=== PATIENT | female | born 1985 | race African-American/Black ===

== ENCOUNTER 2020-10-30 09:34 | Emergency (ER) | payer SELFPAY ==
[~2020-10-30] VITALS: Ht 152.4 cm; Wt 100.0 kg
[2020-10-30 10:58] LABS: BILIRUBIN,URINE NEGATIVE (NEG); CLARITY,URINE CLEAR; COLOR,URINE YELLOW; NITRITE,URINE NEGATIVE (NEG); PROTEIN,URINE NEGATIVE (NEG-TRACE)
--- NOTE | 2020-10-30 11:07 | PHYS DOC ---
Past Medical History Past Surgical History: No Surgical History Smoking Status: Never Smoker Alcohol Use: None General Adult EDM: Chief Complaint: PELVIC PAIN Problems: (1) Pelvic pain HPI: HPI: 34-year-old female with a history of bacterial vaginosis presents the emergency department complaining of vaginal discharge, pelvic pain, lower abdominal pain for the past several days that has been intermittent, mild in severity, nonradiating. She states that she has not had any vaginal bleeding, denies chance of , she has had symptoms like this before and was diagnosed with bacterial vaginosis and believes this is likely similar. The patient denies nausea, vomiting, fever, chills, chest pain, shortness of breath, urinary symptoms, cough, recent trauma, or any other complaints. Review of Systems: Review of Systems: Review of systems is otherwise unremarkable except for what was mentioned in the HPI. Heart Score: C/O Chest Pain: No Family History: Family History: Negative Current Medications: My Orders - DON WEEKS DO Procedure Category Date Status Time Ua, Cult If Indicated LAB 10/30/20 In Process 10:10 Urine Test RUDY 10/30/20 In Process 10:10 Chlam/Gc Pcr Ur LAB 10/30/20 Logged 11:02 Wet Prep MANAV 10/30/20 Uncollected 11:02 Pulse Oximetry: RUDY 10/30/20 In Process Standing Order 11:02 Pelvis Complete US 10/30/20 Logged 11:02 Acetaminophen PHA 10/30/20 Logged (Tylenol) 11:15 Allergies: Allergies: Allergies Coded Allergies Type Severity Reaction Last Updated Verified aspirin Allergy Intermediate 10/30/20 Yes Physical Exam: PE: Constitutional: No acute distress, non-toxic appearance. HENT: Atraumatic, bilateral external ears normal, nose normal. Eyes: PERRLA, EOMI, conjunctiva normal, no discharge. Neck: Normal range of motion, supple, no stridor. Cardiovascular: Heart rate regular rhythm. 2+ radial pulses Lungs & Thorax: No respiratory distress, symmetrical expansion. Abdomen: Soft, prepubic tenderness, no rebound or guarding Skin: Warm, dry. Extremities: No tenderness, no cyanosis, ROM intact, no edema. Neurologic: Alert and oriented X 3, normal motor function, normal sensory function, no focal deficits noted. Non ataxic gait. GCS 15. Psychologic: Affect normal, judgment normal, mood normal. Current Patient Data: Labs: Laboratory Tests Test 10/30/20 10:45 10/30/20 10:50 Urine Collection Type Unknown Urine Color Yellow Urine Clarity Clear Urine pH 6.0 (<5.0-8.0) Urine Specific [place] 1.015 (1.000-1.030) Urine Protein Negative mg/dL (NEG-TRACE) Urine Glucose (UA) Negative mg/dL (NEG) Urine Ketones (Stick) Negative mg/dL (NEG) Urine Blood Trace (NEG) Urine Nitrite Negative (NEG) Urine Bilirubin Negative (NEG) Urine Urobilinogen Dipstick 1.0 mg/dL (0.2 mg/dL) Urine Leukocyte Esterase Moderate (NEG) Urine RBC 0 /HPF (0-2) Urine WBC 5-10 /HPF (0-4) Urine Squamous Epithelial Cells Many /LPF Urine Bacteria Few /HPF (0-FEW) Urine Mucus Slight /LPF Bedside Urine HCG, Qualitative Hcg negative (Negative) Vital Signs: Vital Signs Date Time Temp Pulse Resp B/P (MAP) Pulse Ox O2 Delivery O2 Flow Rate FiO2 10/30/20 10:56 98.6 80 18 126/82 99 Room Air 98.6 Radiology/Procedures: Radiology/Procedures: EXAM: Pelvic sonogram. HISTORY: Pain and vaginal discharge. TECHNIQUE: Transabdominal sonographic imaging of the pelvis was performed. COMPARISON: None. FINDINGS: The uterus measures 11.0 x 7.7 x 5.0 cm. There is a right superior uterine fibroid measuring 2.5 x 2.5 x 2.4 cm. The endometrial stripe measures 5 mm in thickness. The ovaries are normal in size and demonstrate normal blood flow. There is no pelvic free fluid. IMPRESSION: 1. Prominent uterus containing a 2.5 cm uterine fibroid. 2. Otherwise, unremarkable pelvic sonogram. Electronically signed by: Gabriela Edwards MD (10/30/2020 12:07 PM) Course & Med Decision Making: Course & Med Decision Making Pelvic exam was offered but the patient deferred for self swab. Work-up is consistent with a noncomplicated bacterial vaginosis. Ultrasound was negative. She was discharged with Flagyl. wanted tx for sti My Orders - DON WEEKS DO Procedure Category Date Status Time Ua, Cult If Indicated LAB 10/30/20 Complete 10:10 Urine Test RUDY 10/30/20 In Process 10:10 Wet Prep MANAV 10/30/20 Complete 11:02 Pulse Oximetry: RUDY 10/30/20 In Process Standing Order 11:02 Pelvis Complete US 10/30/20 Resulted 11:02 Acetaminophen PHA 10/30/20 Complete (Tylenol) 11:15 Chlam/Gc Pcr Ur LAB 10/30/20 In Process 11:10 Urine Culture MANAV 10/30/20 In Process 11:15 Ceftriaxone Im PHA 10/30/20 In Process (Rocephin Im) 13:15 Departure Departure Impression: Primary Impression: Bacterial vaginosis Disposition: HOME / SELF CARE / HOMELESS Condition: STABLE Referrals: NO PCP (PCP) Patient Instructions: Bacterial Vaginosis, [id number] Additional Instructions: You have been given a prescription for Flagyl. This medicine is an antibiotic for bacterial vaginosis. Please take as prescribed for the full course of the prescription. Do not stop taking the medicine early if you feel better, as this could risk building antibiotic resistance and may put you at risk for a more harmful infection later. The most common side effect of antibiotics include nausea, vomiting, diarrhea and rash. Please come to be evaluated if you develop any symptoms that are concerning to you. One major adverse effect of antibiotics is the development of a diarrheal illness called c. diff colitis, if you develop an excessive amount of diarrhea or are concerned about this please return to the ER or consult a physician. You were seen in the emergency department for a sexually transmitted infection (STI). You were tested for the most common STIs including gonorrhea and chlamydia. It is not clear when/where you became infected and many people can be asymptomatic. -You were treated with antibiotics in the emergency department prophylactically for common STIs above. -Avoid drinking alcohol for at least 5 days as the medicine you received can make you sick. -Cultures were taken and you should receive a call if your cultures are positive. It is important you provide the hospital with a good phone number for this follow up. -You need to have testing for syphilis, hepatitis, and other STD/STI testing done at the health department or your primary care doctor's office. -You must have all your sexual partners tested and avoid sexual intercourse for 1 week after all parties have finished testing and treatment. Strict adherence may still not prevent re-infection. - Return to the Emergency Department, day or night, should your symptoms worsen or should you develop a fever, rash, abdominal pain, or for any other concerns you feel warrant further evaluation. Scripts Doxycycline Hyclate (DOXYCYCLINE HYCLATE) 100 Mg Capsule 1 CAP PO BID, #14 CAP Prov: DON WEEKS DO 10/30/20 Metronidazole (FLAGYL) 500 Mg Tablet 1 TAB PO BID, #14 TAB Prov: DON WEEKS DO 10/30/20 DON WEEKS DO Oct 30, 2020 11:07
[2020-10-30 11:15] LABS: BACTERIA,URINE FEW /HPF (0-FEW); RBC,URINE 0 /HPF (0-2)
[2020-10-30] MEDS ORDERED: ACETAMINOPHEN 500 MG TABLET PO ONE (11:15)
--- NOTE | 2020-10-30 12:10 | RAD ---
EXAM: Pelvic sonogram. HISTORY: Pain and vaginal discharge. TECHNIQUE: Transabdominal sonographic imaging of the pelvis was performed. COMPARISON: None. FINDINGS: The uterus measures 11.0 x 7.7 x 5.0 cm. There is a right superior uterine fibroid measurin g 2.5 x 2.5 x 2.4 cm. The endometrial stripe measures 5 mm in thickness. The ovaries are normal in si ze and demonstrate normal blood flow. There is no pelvic free fluid. IMPRESSION: 1. Prominent uterus containing a 2.5 cm uterine fibroid. 2. Otherwise, unremarkable pelvic sonogram. Electronically signed by: Gabriela Edwards MD (10/30/2020 12:07 PM) [id number]
[2020-10-30] MEDS ORDERED: METR500T PO (13:09)
[2020-10-30] MEDS ORDERED: DOXY100C3 PO (13:09)
[2020-10-30] MEDS ORDERED: cefTRIAXone IM 500 MG VIAL. IM ONE (13:15)
[2020-10-30 14:06] VITALS: BP 137/84
== END 2020-10-30 14:06 | disposition home or self-care (01) ==
LOC: ER 09:34
DX: N76.0 Acute vaginitis (principal); B96.89 Other specified bacterial agents as the cause of diseases classified elsewhere
CPT/HCPCS: 76856; 81001; 81025; 87086; 87491; 87591; 96372; 99284; J0696; Q0111

== ENCOUNTER 2020-12-31 04:35 | Emergency (ER) | payer SELFPAY ==
[~2020-12-31] VITALS: Ht 152.4 cm; Wt 105.9 kg
[~2020-12-31 04:35] MED LIST: DOXY100C3 PO; METR500T PO
[2020-12-31] MEDS ORDERED: ONDANSETRON PF 4 MG/2 ML VIAL. IVP ONE (04:45)
[2020-12-31] MEDS ORDERED: IV NORMAL SALINE 1000ML BAG 1,000 ML IV SCH (04:45)
[2020-12-31 05:25] LABS: BASO % 0 % (0-3); EOS % 0 % (0-3); HEMATOCRIT 42.7 % (36.0-47.0); HEMOGLOBIN 14.8 g/dL (12.0-15.5); LYMPH # 1.5 x10^3/uL (1.0-4.8); LYMPH % 11 % (24-48); MEAN CORPUSCULAR HEMOGLOBIN 31 pg (25-35); MEAN CORPUSCULAR HGB CONC 35 g/dL (31-37); MEAN CORPUSCULAR VOLUME 89 fL (79-100); MONO # 0.5 x10^3/uL (0.0-1.1); MONO % 4 % (0-9); NEUT # 11.3 x10^3/uL (1.8-7.7); NEUT % 85 % (31-73); PLATELET COUNT 271 x10^3/uL (140-400); RED BLOOD COUNT 4.78 x10^6/uL (3.50-5.40); RED CELL DISTRIBUTION WIDTH 13.2 % (11.5-14.5); WHITE BLOOD COUNT 13.3 x10^3/uL (4.0-11.0)
--- NOTE | 2020-12-31 05:27 | PHYS DOC ---
Past Medical History Past Medical History: Pancreatitis Additional Past Medical Histor: HIATAL HERNIA (VU HARTMAN DO) Past Surgical History: Tubal ligation (VU HARTMAN DO) Smoking Status: Current Some Day Smoker Additional Information: CIGARS Alcohol Use: Occasionally Social History Narrative: LAST USED THURSDAY (VU HARTMAN DO) General Adult EDM: Chief Complaint: NAUSEA/VOMITING/abdominal pain HPI: HPI: Patient is a 35 year old female who was brought here by EMS from home for evaluation of abdominal pain with nausea and vomiting. Symptoms have been going on for 2 days. Patient says she is not able to keep anything down. Patient had some diarrhea initially but since she could not eat or drink anything she stopped having any bowel movement. Patient described the pain as cramping in nature at the epigastric area. Patient says she vomited so much that her chest hurt now. Patient has history of pancreatitis, she stated that she had some kind of operation of her pancreas in the past but not sure what it was. Patient said every year she would have one episode of intense pain like today. Patient denies history of diabetic high blood pressure. Patient denies any cough or fever. Patient denies any trouble breathing. Patient does have a history of hiatal hernia. (VU HARTMAN DO) Review of Systems: Review of Systems: Constitutional: Denies fever or chills. [] Eyes: Denies change in visual acuity. [] HENT: Denies nasal congestion or sore throat. [] Respiratory: Denies cough or shortness of breath. [] Cardiovascular: Positive for chest pain , no edema. [] GI: Positive for abdominal pain, nausea, vomiting, no bloody stools or diarrhea. [] : Denies dysuria. [] Musculoskeletal: Denies back pain or joint pain. [] Integument: Denies rash. [] Neurologic: Denies headache, focal weakness or sensory changes. [] Endocrine: Denies polyuria or polydipsia. [] Lymphatic: Denies swollen glands. [] Psychiatric: Denies depression or anxiety. [] (VU HARTMAN DO) Heart Score: C/O Chest Pain: Yes HEART Score for Chest Pain: HEART Score for Chest Pain Response (Comments) Value History Slighlty/Non-Suspicious 0 ECG Normal 0 Age < 45 0 Risk Factors No Risk Factors 0 Troponin < Normal Limit 0 Total 0 Risk Factors: Risk Factors: DM, Current or recent (<one month) smoker, HTN, HLP, family history of CAD, obesity. Risk Scores: Score 0 - 3: 2.5% MACE over next 6 weeks - Discharge Home Score 4 - 6: 20.3% MACE over next 6 weeks - Admit for Clinical Observation Score 7 - 10: 72.7% MACE over next 6 weeks - Early Invasive Strategies (VU HARTMAN DO) C/O Chest Pain: N/A (CORTNEY SCOTT MD) Current Medications: Current Medications Medications (Trade) Dose Ordered Sig/Rob Start Time Stop Time Status Last Admin Dose Admin Morphine Sulfate (Morphine Sulfate) 4 mg 1X ONCE 12/31/20 05:30 12/31/20 05:31 UNV Ondansetron HCl (Zofran) 4 mg 1X ONCE 12/31/20 04:45 12/31/20 04:48 DC 12/31/20 05:12 4 MG Pantoprazole Sodium (PROTONIX VIAL for IV PUSH) 40 mg 1X ONCE 12/31/20 05:30 12/31/20 05:31 UNV Sodium Chloride 1,000 ml @ 1,000 mls/hr Q1H 12/31/20 04:45 12/31/20 05:44 12/31/20 05:10 1,000 MLS/HR (VU HARTMAN DO) Allergies: Allergies: Allergies Coded Allergies Type Severity Reaction Last Updated Verified aspirin Allergy Intermediate 10/30/20 Yes (VU HARTMAN DO) Physical Exam: PE: Constitutional: Well developed, well nourished, no acute distress, non-toxic appearance. [] HENT: Normocephalic, atraumatic, bilateral external ears normal, oropharynx moist, no oral exudates, nose normal. [] Eyes: PERRLA, EOMI, conjunctiva normal, no discharge. [] Neck: Normal range of motion, no tenderness, supple, no stridor. [] Cardiovascular:Heart rate regular rhythm, no murmur [] Lungs & Thorax: Bilateral breath sounds clear to auscultation [] Abdomen: Bowel sounds normal, soft, there is tenderness at epigastric area, no masses, no pulsatile masses. [] Skin: Warm, dry, no erythema, no rash. [] Back: No tenderness, no CVA tenderness. [] Extremities: No tenderness, no cyanosis, no clubbing, ROM intact, no edema. [] Neurologic: Alert and oriented X 3, normal motor function, normal sensory function, no focal deficits noted. [] Psychologic: Affect normal, judgement normal, mood normal. [] (VU HARTMAN DO) Current Patient Data: Labs: Laboratory Tests Test 12/31/20 05:15 White Blood Count 13.3 x10^3/uL Red Blood Count 4.78 x10^6/uL Hemoglobin 14.8 g/dL Hematocrit 42.7 % Mean Corpuscular Volume 89 fL Mean Corpuscular Hemoglobin 31 pg Mean Corpuscular Hemoglobin Concent 35 g/dL Red Cell Distribution Width 13.2 % Platelet Count 271 x10^3/uL Neutrophils (%) (Auto) 85 % Lymphocytes (%) (Auto) 11 % Monocytes (%) (Auto) 4 % Eosinophils (%) (Auto) 0 % Basophils (%) (Auto) 0 % Neutrophils # (Auto) 11.3 x10^3/uL Lymphocytes # (Auto) 1.5 x10^3/uL Monocytes # (Auto) 0.5 x10^3/uL Eosinophils # (Auto) 0.0 x10^3/uL Basophils # (Auto) 0.0 x10^3/uL Sodium Level 141 mmol/L Potassium Level 3.3 mmol/L Chloride Level 102 mmol/L Carbon Dioxide Level 28 mmol/L Anion Gap 11 Blood Urea Nitrogen 14 mg/dL Creatinine 1.0 mg/dL Estimated GFR (Cockcroft-Gault) 75.9 BUN/Creatinine Ratio 14 Glucose Level 146 mg/dL Calcium Level 9.5 mg/dL Magnesium Level 1.6 mg/dL Total Bilirubin 0.5 mg/dL Aspartate Amino Transf (AST/SGOT) 15 U/L Alanine Aminotransferase (ALT/SGPT) 31 U/L Alkaline Phosphatase 91 U/L Troponin I Quantitative < 0.017 ng/mL Total Protein 8.5 g/dL Albumin 4.0 g/dL Albumin/Globulin Ratio 0.9 Lipase 28 U/L Current Medications Medications (Trade) Dose Ordered Sig/Rob Route PRN Reason Start Time Stop Time Status Last Admin Dose Admin Sodium Chloride 1,000 ml @ 1,000 mls/hr Q1H IV 12/31/20 04:45 12/31/20 05:44 DC 12/31/20 05:10 Ondansetron HCl (Zofran) 4 mg 1X ONCE IVP 12/31/20 04:45 12/31/20 04:48 DC 12/31/20 05:12 Morphine Sulfate (Morphine Sulfate) 4 mg 1X ONCE IVP 12/31/20 05:30 12/31/20 05:31 DC 12/31/20 05:42 Pantoprazole Sodium (PROTONIX VIAL for IV PUSH) 40 mg 1X ONCE IVP 12/31/20 05:30 12/31/20 05:31 DC 12/31/20 05:43 Magnesium Sulfate 50 ml @ 25 mls/hr 1X ONCE IV 12/31/20 06:15 12/31/20 08:14 UNV Laboratory Tests Test 12/31/20 05:15 White Blood Count 13.3 x10^3/uL Red Blood Count 4.78 x10^6/uL Hemoglobin 14.8 g/dL Hematocrit 42.7 % Mean Corpuscular Volume 89 fL Mean Corpuscular Hemoglobin 31 pg Mean Corpuscular Hemoglobin Concent 35 g/dL Red Cell Distribution Width 13.2 % Platelet Count 271 x10^3/uL Neutrophils (%) (Auto) 85 % Lymphocytes (%) (Auto) 11 % Monocytes (%) (Auto) 4 % Eosinophils (%) (Auto) 0 % Basophils (%) (Auto) 0 % Neutrophils # (Auto) 11.3 x10^3/uL Lymphocytes # (Auto) 1.5 x10^3/uL Monocytes # (Auto) 0.5 x10^3/uL Eosinophils # (Auto) 0.0 x10^3/uL Basophils # (Auto) 0.0 x10^3/uL Current Medications Medications (Trade) Dose Ordered Sig/Rob Route PRN Reason Start Time Stop Time Status Last Admin Dose Admin Sodium Chloride 1,000 ml @ 1,000 mls/hr Q1H IV 12/31/20 04:45 12/31/20 05:44 12/31/20 05:10 Ondansetron HCl (Zofran) 4 mg 1X ONCE IVP 12/31/20 04:45 12/31/20 04:48 DC 12/31/20 05:12 Morphine Sulfate (Morphine Sulfate) 4 mg 1X ONCE IVP 12/31/20 05:30 12/31/20 05:31 DC Pantoprazole Sodium (PROTONIX VIAL for IV PUSH) 40 mg 1X ONCE IVP 12/31/20 05:30 12/31/20 05:31 DC Vital Signs: Vital Signs Date Time Temp Pulse Resp B/P (MAP) Pulse Ox O2 Delivery O2 Flow Rate FiO2 12/31/20 04:35 99.2 86 24 144/89 (107) 97 Room Air 99.2 (VU HARTMAN DO) EKG: EKG: EKG was done at 440, heart rate of 68 bpm, sinus rhythm, no ST segment elevation (VU HARTMAN DO) Radiology/Procedures: Radiology/Procedures: [][place] [address] IMAGING REPORT Signed PATIENT: LAMBERTO LEES ACCOUNT: [id number] : 1985 LOCATION: ER AGE: 35 SEX: F EXAM STATUS: PRE ER ORD. PHYSICIAN: VU HARTMAN DO REASON: CHEST PAIN PROCEDURE: CHEST AP ONLY Single view chest dated 12/31/2020 5:23 AM: COMPARISON: None Clinical Indication: Chest pain. Findings: Single upright portable exam of the chest was performed. Heart size and mediastinal contours are within normal limits. Lungs are clear. No consolidation or pleural effusion. No pneumothorax. IMPRESSION: No acute radiographic abnormality. Electronically signed by: Momo Munroe MD (12/31/2020 5:23 AM) [facility] [place] DICTATED and SIGNED BY: MOMO MUNROE MD DATE: 12/31/20 [id number] (VU HARTMAN DO) Impression: [address] [address] IMAGING REPORT Signed PATIENT: LAMBERTO LEES ACCOUNT: [id number] : 1985 LOCATION: ER AGE: 35 SEX: F EXAM STATUS: REG ER ORD. PHYSICIAN: VU HARTMAN DO REASON: ABDOMINAL PAIN, OMNI 300 75 ML IV PROCEDURE: CT ABD PELV W/ IV CONTRST ONLY CT ABDOMEN+PELVIS W History: Reason: ABDOMINAL PAIN, OMNI 300 75 ML IV / Spl. Instructions: / History: Technique: After the administration of intravenous contrast, CT imaging was performed of the abdomen and pelvis. Multiplanar images are reviewed. Exposure: One or more of the following individualized dose reduction techniques were utilized for this examination: 1. Automated exposure control 2. Adjustment of the mA and/or kV according to patient size 3. Use of iterative reconstruction technique. Comparison: None Findings: Lower chest: Mild left lower lobe linear atelectasis. Abdomen and pelvis: The liver, spleen, adrenal glands, pancreas and gallbladder are unremarkable. No biliary ductal dilatation. Right renal cyst measures 3.2 cm. No hydronephrosis. No renal calculus. Decompressed urinary bladder. Normal appendix. Some mucosal fat infiltration of the colon, potentially incidental and be seen with prior insult. No evidence of bowel obstruction. No pathologic lymphadenopathy. No ascites. Small umbilical fat-containing hernia. Right anterior uterine heterogeneous lesion measures 3.0 x 2.2 cm. Anterior myometrial heterogeneous lesion measures 1.5 cm. Posterior myometrial lesion measures 1.4 cm. Left fundal exophytic lesion measures 1.4 cm. ovaries are unremarkable. Bones: No pathologic osseous lesions. Impression: 1. No acute abdominal or pelvic pathology. 2. Several uterine lesions, likely fibroids. Electronically signed by: Peyman Cervantes DO (12/31/2020 7:33 AM) [facility] DICTATED and SIGNED BY: PEYMAN CERVANTES DO DATE: 12/31/20 [id number] [facility] [address] [place] [address] IMAGING REPORT Signed PATIENT: LAMBERTO LEES ACCOUNT: [id number] : 1985 LOCATION: ER AGE: 35 SEX: F EXAM STATUS: REG ER ORD. PHYSICIAN: VU HARTMAN DO REASON: RUQ, EPIGASTRIC ABDOMINAL PAIN PROCEDURE: ABDOMEN LTD EXAM: ULTRASOUND ABDOMEN LIMITED 12/31/2020 CLINICAL HISTORY: Reason: RUQ, EPIGASTRIC ABDOMINAL PAIN / Spl. Instructions: / History: Pain COMPARISON: None available. TECHNIQUE: Limited ultrasound examination of the right upper quadrant of the ab domen was performed. FINDINGS: Liver is of diffuse increased echogenicity compatible with fatty infiltration. No apparent hepatic mass. Intrahepatic and extra hepatic biliary tree normal in caliber. The CBD measures 4 mm. Gallbladder normal in size and echogenicity. No gallbladder wall thickening or pericholecystic fluid. No gallstones are seen. Right kidney measures 11.7 cm in length without hydronephrosis. There is a small cyst at the lower pole measuring about 3 cm. Left kidney was not imaged. Limited visualized portions of pancreas aorta and IVC unremarkable. No significant ascites. IMPRESSION: 1. No acute sonographic abnormality. 2. Mild hepatic steatosis. Electronically signed by: Momo Munroe MD (12/31/2020 6:10 AM) [facility] [place] DICTATED and SIGNED BY: MOMO MUNROE MD DATE: 12/31/20 [id number] (CORTNEY SCOTT MD) Course & Med Decision Making: Course & Med Decision Making Pertinent Labs and Imaging studies reviewed. (See chart for details) Patient is a 35-year-old female who present to ER due to abdominal pain, patient'S care has been transferred to Dr. Cortney Scott at shift change pending CT scan of abdomen pelvis (VU HARTMAN DO) Course & Med Decision Making Received this patient in signout with CT of the abdomen and pelvis pending after negative RUQ ultrasound. CT shows no acute process, but does identify likely uterine fibroids and a right renal cyst. Urine drug screen positive for multiple substances. UA shows many RBCs and WBCs with moderate amount of leukocyte esterase. Will be sent for culture. On-reevaluation she does complain of 2 weeks of urinary frequency and urgency, but denies dysuria. We will send cefdinir for UTI. (CORTNEY SCOTT MD) Dragon Disclaimer: Dragon Disclaimer: This electronic medical record was generated, in whole or in part, using a voice recognition dictation system. (VU HARTMAN DO) Departure Departure Impression: Primary Impression: Abdominal pain Additional Impressions: Hypomagnesemia Hypokalemia Condition: STABLE Referrals: NO PCP (PCP) VU HARTMAN DO Dec 31, 2020 05:27 CORTNEY SCOTT MD Dec 31, 2020 07:46
[2020-12-31] MEDS ORDERED: MORPHINE SULFATE 4 MG/ML INJ. IVP ONE (05:30)
[2020-12-31] MEDS ORDERED: PANTOPRAZOLE IV PUSH 40 MG VIAL. IVP ONE (05:30)
[2020-12-31 05:49] LABS: CALCIUM 9.5 mg/dL (8.5-10.1); GFR 75.9; POTASSIUM 3.3 mmol/L (3.5-5.1)
[2020-12-31 05:55] LABS: ALBUMIN/GLOBULIN RATIO 0.9 (1.0-1.7); MAGNESIUM 1.6 mg/dL (1.8-2.4); TOTAL BILIRUBIN 0.5 mg/dL (0.2-1.0); TOTAL PROTEIN 8.5 g/dL (6.4-8.2)
--- NOTE | 2020-12-31 06:13 | RAD ---
EXAM: ULTRASOUND ABDOMEN LIMITED 12/31/2020 CLINICAL HISTORY: Reason: RUQ, EPIGASTRIC ABDOMINAL PAIN / Spl. Instructions: / History: Pain COMPARISON: None available. TECHNIQUE: Limited ultrasound examination of the right upper quadrant of the abdomen was performed. FINDINGS: Liver is of diffuse increased echogenicity compatible with fatty infiltration. No apparent hepatic ma ss. Intrahepatic and extra hepatic biliary tree normal in caliber. The CBD measures 4 mm. Gallbladder normal in size and echogenicity. No gallbladder wall thickening or pericholecystic fluid. No gallstones are seen. Right kidney measures 11.7 cm in length without hydronephrosis. There is a small cyst at the lower po le measuring about 3 cm. Left kidney was not imaged. Limited visualized portions of pancreas aorta and IVC unremarkable. No significant ascites. IMPRESSION: 1. No acute sonographic abnormality. 2. Mild hepatic steatosis. Electronically signed by: Momo Munroe MD (12/31/2020 6:10 AM) [facility]
[2020-12-31] MEDS ORDERED: POTASSIUM PHOSPHATE,MONOBASIC 500 MG TABLET. PO ONE (06:15)
[2020-12-31] MEDS ORDERED: MAGNESIUM SULFATE 2GM 50 ML IV ONE (06:15)
[2020-12-31] MEDS ORDERED: IOHEXOL 300 MG/ML 100ML VIAL. IV ONE (06:30)
[2020-12-31] MEDS ORDERED: CONTRAST GIVEN. MC PRN (06:30)
--- NOTE | 2020-12-31 06:46 | EKG ---
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
[2020-12-31 07:05] LABS: BILIRUBIN,URINE NEGATIVE (NEG); CLARITY,URINE CLEAR; COLOR,URINE YELLOW; NITRITE,URINE NEGATIVE (NEG); PROTEIN,URINE NEGATIVE (NEG-TRACE); UROBILINOGEN,URINE 0.2 mg/dL (0.2 mg/dL)
[2020-12-31 07:13] LABS: BARBITURATES NEG (NEG); BENZODIAZEPINES NEG (NEG); CANNABINOIDS POS (NEG); COCAINE POS (NEG); METHADONE NEG (NEG); OPIATES POS (NEG); PHENCYCLIDINE POS (NEG)
[2020-12-31 07:14] LABS: AMPHETAMINE/METHAMPHETAMINE NEG (NEG)
[2020-12-31 07:21] LABS: BACTERIA,URINE 0 /HPF (0-FEW); RBC,URINE >40 /HPF (0-2)
--- NOTE | 2020-12-31 07:36 | RAD ---
CT ABDOMEN+PELVIS W History: Reason: ABDOMINAL PAIN, OMNI 300 75 ML IV / Spl. Instructions: / History: Technique: After the administration of intravenous contrast, CT imaging was performed of the abdomen and pelvis. Multiplanar images are reviewed. Exposure: One or more of the following individualized dose reduction techniques were utilized for thi s examination: 1. Automated exposure control 2. Adjustment of the mA and/or kV according to patient size 3. Use of iterative reconstruction technique. Comparison: None Findings: Lower chest: Mild left lower lobe linear atelectasis. Abdomen and pelvis: The liver, spleen, adrenal glands, pancreas and gallbladder are unremarkable. No biliary ductal dilatation. Right renal cyst measures 3.2 cm. No hydronephrosis. No renal calculus. Decompressed urinary bladder. Normal appendix. Some mucosal fat infiltration of the colon, potentially incidental and be seen with prior insult. No evidence of bowel obstruction. No pathologic lymphadenopathy. No ascites. Small umbi lical fat-containing hernia. Right anterior uterine heterogeneous lesion measures 3.0 x 2.2 cm. Anterior myometrial heterogeneous lesion measures 1.5 cm. Posterior myometrial lesion measures 1.4 cm. Left fundal exophytic lesion bertha sures 1.4 cm. ovaries are unremarkable. Bones: No pathologic osseous lesions. Impression: 1. No acute abdominal or pelvic pathology. 2. Several uterine lesions, likely fibroids. Electronically signed by: Peyman Conklin DO (12/31/2020 7:33 AM) [facility]
[2020-12-31] MEDS ORDERED: CEFD300C PO (07:48)
[2020-12-31] MEDS ORDERED: ACETAMINOPHEN 500 MG TABLET PO ONE (08:00)
[2020-12-31 08:09] VITALS: BP 143/81
== END 2020-12-31 08:09 | disposition home or self-care (01) ==
LOC: ER 04:35
DX: R10.13 Epigastric pain (principal); R11.2 Nausea with vomiting, unspecified; R19.7 Diarrhea, unspecified; Z98.51 Tubal ligation status; F17.210 Nicotine dependence, cigarettes, uncomplicated; Z88.6 Allergy status to analgesic agent
CPT/HCPCS: 36415; 71045; 74177; 76705; 80053; 80307; 81001; 81025; 83690; 83735; 84484; 85025; 87086; 93005; 96361; 96365; 96375; 99285; C9113; J2270; J2405; J3475; J7030; Q9967

== ENCOUNTER 2021-07-05 10:37 | Emergency (ER) | payer MEDICAID ==
[~2021-07-05] VITALS: Ht 152.4 cm; Wt 108.3 kg
[~2021-07-05 10:37] MED LIST changes: +CEFD300C PO
--- NOTE | 2021-07-05 11:43 | RAD ---
EXAMINATION: XR CHEST 1V CLINICAL HISTORY: Shortness of breath. EXAM DATE/TIME: 07/05/2021 11:18 AM COMPARISON: 12/31/2020 FINDINGS: Lines, Tubes, and Devices: None. Cardiomediastinal Silhouette: Within normal limits. Lungs and Pleura: Prominent overlying soft tissue attenuation in imaging technique limits evaluation of the lung bases, however, there is no definitive evidence of focal airspace consolidation or pleura l effusion. Pulmonary vasculature unremarkable. Bones and Soft Tissues: No acute osseous abnormality. IMPRESSION: No evidence of acute cardiopulmonary abnormality. Electronically signed by: Shay Grady DO (07/05/2021 11:41 AM) [id number]
[2021-07-05] MEDS ORDERED: IPRATRPIUM/ALBUTEROL 0.5/2.5MG 3 ML NEBU. NEB ONE (11:45)
[2021-07-05] MEDS ORDERED: LIDO:MAALOX 1:1 20 ML SINGLE DOSE. SWSW ONE (11:45)
[2021-07-05] MEDS ORDERED: IV NORMAL SALINE 1000ML BAG 1,000 ML IV ONE (13:30)
[2021-07-05 13:33] VITALS: BP 178/92
--- NOTE | 2021-07-05 13:42 | PHYS DOC ---
Past Medical History Past Medical History: Pancreatitis Additional Past Medical Histor: HIATAL HERNIA Past Surgical History: Tubal ligation, Other Additional Past Surgical Histo: pancreas surgery Smoking Status: Current Every Day Smoker Additional Information: smokes 1-2 cigars daily Alcohol Use: Occasionally General Adult EDM: Chief Complaint: SHORTNESS OF BREATH HPI: HPI: Patient is a 35-year-old female who presents to the emergency department complaining of epigastric pain with shortness of breath since yesterday evening. Patient states she was smoking marijuana and crack cocaine and drinking alcohol yesterday for celebration. Patient states she feels her heart is racing and became concerned when her epigastric pain did not go away with her antacid. Patient denies radiation of epigastric pain, denies diaphoretic episodes, denies cough, chest or nasal congestion, recent fever or chills. Patient denies dizziness, syncopal or near syncopal episodes. Patient complains of vaginal discharge with fishy odor however denies STI concerns stating she thinks she has BV again. Patient denies rashes or lesions to her vagina. Patient denies pelvic pain or abdominal discomfort. Patient denies nausea, vomiting, or diarrhea. Patient denies other physical complaints or physical concerns. Review of Systems: Review of Systems: 14 body systems of review of systems have been reviewed. See HPI for pertinent positives and negative responses, otherwise all other systems are negative, nonpertinent or noncontributory. Constitutional: Negative except as outlined in HPI above. Skin: Negative except as outlined in HPI above. Eyes: Negative except as outlined in HPI above. HENT: Negative except as outlined in HPI above. Respiratory: Negative except as outlined in HPI above. Cardiovascular: Negative except as outlined in HPI above. GI: Negative except as outlined in HPI above. : Negative except as outlined in HPI above. Musculoskeletal: Negative except as outlined in HPI above. Integument: Negative except as outlined in HPI above. Neurologic: Negative except as outlined in HPI above. Endocrine: Negative except as outlined in HPI above. Lymphatic: Negative except as outlined in HPI above. Psychiatric: Negative except as outlined in HPI above. Heart Score: C/O Chest Pain: No Risk Factors: Risk Factors: DM, Current or recent (<one month) smoker, HTN, HLP, family history of CAD, obesity. Risk Scores: Score 0 - 3: 2.5% MACE over next 6 weeks - Discharge Home Score 4 - 6: 20.3% MACE over next 6 weeks - Admit for Clinical Observation Score 7 - 10: 72.7% MACE over next 6 weeks - Early Invasive Strategies Current Medications: Current Medications Medications (Trade) Dose Ordered Sig/Rob Start Time Stop Time Status Last Admin Dose Admin Albuterol/ Ipratropium (Duoneb) 3 ml 1X ONCE 07/05/21 11:45 07/05/21 11:46 DC 07/05/21 11:38 3 ML Multi-Ingredient Mouthwash/Gargle (Gi Cocktail) 20 ml 1X ONCE 07/05/21 11:45 07/05/21 11:46 DC 07/05/21 11:27 20 ML Sodium Chloride 1,000 ml @ 1,000 mls/hr 1X ONCE 07/05/21 13:30 07/05/21 14:29 07/05/21 13:32 1,000 MLS/HR Allergies: Allergies: Allergies Coded Allergies Type Severity Reaction Last Updated Verified aspirin Allergy Intermediate HIVES 07/05/21 Yes Physical Exam: PE: Constitutional: Well developed, well nourished, no acute distress, non-toxic appearance. [] HENT: Normocephalic, atraumatic, bilateral external ears normal, oropharynx moist, no oral exudates, nose normal. [] Eyes: PERRLA, EOMI, conjunctiva normal, no discharge. [] Neck: Normal range of motion, no tenderness, supple, no stridor. [] Cardiovascular:Heart rate regular rhythm, no murmur [] Lungs & Thorax: Bilateral breath sounds clear to auscultation [] Abdomen: Bowel sounds normal, soft, no tenderness, no masses, no pulsatile masses. [] Skin: Warm, dry, no erythema, no rash. [] Back: No tenderness, no CVA tenderness. [] Extremities: No tenderness, no cyanosis, no clubbing, ROM intact, no edema. [] Neurologic: Alert and oriented X 3, normal motor function, normal sensory function, no focal deficits noted. [] Psychologic: Affect normal, judgement normal, mood normal. [] Current Patient Data: Labs: Laboratory Tests Test 07/05/21 11:14 07/05/21 11:18 Urine Collection Type Unknown Urine Color (Auto) Colorless Urine Turbidity Clear Urine pH (Auto) 6.0 (<5.0-8.0) Urine Specific [place] 1.003 (1.000-1.030) Urine Protein (Auto) Negative mg/dL (Negative) Urine Glucose (Auto)(UA) Negative mg/dL (Negative) Urine Ketones (Auto) Negative mg/dL (Negative) Urine Blood (Auto) Trace (Negative) Urine Nitrite Negative (Negative) Urine Bilirubin (Auto) Negative (Negative) Urine Urobilinogen (Auto) Normal mg/dL (Normal) Urine Leukocyte Esterase (Auto) Negative (Negative) Urine RBC 0 /HPF (0-2) Urine WBC Occ /HPF (0-4) Urine Squamous Epithelial Cells Few /LPF Urine Bacteria 0 /HPF (0-FEW) POC Urine HCG, Qualitative Hcg negative (Negative) Microbiology 07/05/21 Wet Prep - Final, Complete Vital Signs: Vital Signs Date Time Temp Pulse Resp B/P (MAP) Pulse Ox O2 Delivery O2 Flow Rate FiO2 07/05/21 13:33 128 24 178/92 (120) 98 Room Air 07/05/21 10:43 98.8 98.8 EKG: EKG: EKG performed at 1053 by ED nursing staff shows a sinus tachycardia with a left atrial axis abnormality, heart rate is 108 bpm, no other ectopy appreciated, GA interval 0.152, QTc interval 0.459, no acute STEMI, no ACS, no acute ischemia appreciated, EKG interpreted by ED attending physician Dr. Espinoza. Radiology/Procedures: Radiology/Procedures: REASON: Short of breath PROCEDURE: CHEST AP ONLY EXAMINATION: XR CHEST 1V CLINICAL HISTORY: Shortness of breath. EXAM DATE/TIME: 07/05/2021 11:18 AM COMPARISON: 12/31/2020 FINDINGS: Lines, Tubes, and Devices: None. Cardiomediastinal Silhouette: Within normal limits. Lungs and Pleura: Prominent overlying soft tissue attenuation in imaging technique limits evaluation of the lung bases, however, there is no definitive evidence of focal airspace consolidation or pleural effusion. Pulmonary vasculature unremarkable. Bones and Soft Tissues: No acute osseous abnormality. IMPRESSION: No evidence of acute cardiopulmonary abnormality. Electronically signed by: Shay Grady DO (07/05/2021 11:41 AM) [id number] Course & Med Decision Making: Course & Med Decision Making Pertinent Labs and Imaging studies reviewed. (See chart for details) 35-year-old female, vital signs reviewed, presents to the emergency department concerning chest pain with shortness of breath and vaginal discharge. Patient does admit to smoking crack cocaine and marijuana and drinking alcohol yesterday. Will order self swab wet prep, urinalysis assay, urine drug screen, GC chlamydia urine, CBC, CMP, D-dimer, NT proBNP, high-sensitivity troponin I, magnesium level, urine test. Will give GI cocktail for epigastric pain. DuoNeb treatment for shortness of breath. 1 L normal saline. Notified by the patient's ED nurse that the patient wishes to leave AGAINST MEDICAL ADVICE. The patient and I had an extensive discussion regarding the risks of leaving AMA including but not limited to , permanent disability, and worsening condition. Also had an extensive discussion with the patient regarding the benefits of excepting admission and transfer which include promotion of health and wellness, and ongoing treatment of disease processes. The patient acknowledged the risks and benefits and agreed to take full responsibility of leaving AGAINST MEDICAL ADVICE. The patient was alert and oriented x4 and had full medical decision-making capability when they signed the AMA forms. Patient left prior to medication decision making, labs were pending at the time of patient's decision to leave AGAINST MEDICAL ADVICE. [employer] Disclaimer: [employer] Disclaimer: This electronic medical record was generated, in whole or in part, using a voice recognition dictation system. Departure Departure Impression: Primary Impression: Left against medical advice Additional Impressions: Shortness of breath Chest pain Qualified Codes: R07.9 - Chest pain, unspecified Disposition: 07 LEFT AGAINST MEDICAL ADVICE Condition: GUARDED Referrals: UNKNOWN PCP NAME (PCP) Patient Instructions: Form - Rejection of Medical Treatment (AMA) Additional Instructions: You were seen today in the emergency department for chest pain and shortness of breath. We had discussed the ED planning, however you have elected to leave the emergency department prior to completion of your emergency department examination. Please follow-up with the nearest emergency department for any ongoing symptoms or worsening symptoms. Patient does not wish to proceed with medical care recommended by ANNY HOBSON. Patient given information related to possible complications, up to and including , which could occur as a result of leaving the hospital at this time. Patient verbalizes understanding of risks involved due to leaving against medical advice. Patient has signed AMA form. [facility] [address] [place] [address] [facility] [address] [place] [address] [facility] [address] [facility] [place] [address] [facility] [address] [place] [address] [facility] [address] [place] [address] [address] [place] [address] [address] [place] [address] [place] [address] [facility] [address] [place] [address] [facility] [address] [place] [address] [facility] Department [address] [place] [address] GUILLERMO MOTT APRN Jul 05, 2021 13:42
[2021-07-05 14:00] LABS: BARBITURATES NEG (NEG); BENZODIAZEPINES NEG (NEG); CANNABINOIDS POS (NEG); COCAINE POS (NEG); METHADONE NEG (NEG); OPIATES NEG (NEG); PHENCYCLIDINE NEG (NEG)
[2021-07-05 14:06] LABS: AMPHETAMINE/METHAMPHETAMINE NEG (NEG)
--- NOTE | 2021-07-05 23:35 | EKG ---
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
== END 2021-07-05 13:45 | disposition left against medical advice (07) ==
LOC: ER 10:37
DX: R06.02 Shortness of breath (principal); R07.89 Other chest pain; R10.13 Epigastric pain; F17.210 Nicotine dependence, cigarettes, uncomplicated; Z88.6 Allergy status to analgesic agent
CPT/HCPCS: 71045; 80307; 81025; 87491; 87591; 93005; 94640; 96360; 99285; J7030; Q0111; 81001